=== PATIENT | female | born 1970 ===

== ENCOUNTER 2021-08-22 13:50 | Emergency (ER) | payer MEDICAID | END 2021-08-22 20:35 | disposition left against medical advice (07) | LOC: ER 13:51 | DX: T14.8XXA Other injury of unspecified body region, initial encounter (principal); Z53.21 Procedure and treatment not carried out due to patient leaving prior to being seen by health care provider; X58.XXXA Exposure to other specified factors, initial encounter; Y93.9 Activity, unspecified; Y92.9 Unspecified place or not applicable; Y99.9 Unspecified external cause status ==